=== PATIENT | male | born 1980 | race Caucasian/White ===

== ENCOUNTER 2016-10-04 10:18 | Emergency (ER) | payer OTHER ==
[~2016-10-04] VITALS: Ht 170.2 cm; Wt 98.2 kg
[~2016-10-04 10:18] MED LIST: AUGM875T PO; TYLCOD5S PO
[2016-10-04 10:27] VITALS: BP 131/70; PULSE 62; RESP 14; TEMP 99.2; O2SAT 96
[2016-10-04] MEDS ORDERED: MEDR4PAK PO ×2 (11:56→12:01)
[2016-10-04] MEDS ORDERED: NYST10007 TOPICAL (11:56)
--- NOTE | 2016-10-04 11:59 | PD ---
HPI Chief Complaint: Skin Problem Time Seen by Provider: 11:35 Travel History International Travel<30 days: No Contact w/Intl Traveler<30days: No History of Present Illness HPI 36-year-old male presents emergency department for evaluation of a rash 2 days. Patient reports a rash originated in his left axilla and then spread to his right axilla, abdomen and groin. He reports that the rash is nonpleuritic. He denies fever or chills. He reports taking Benadryl with minimal improvement. He denies any new soaps, detergents, lotions or body products. He denies fever, oral/tongue swelling, difficulty swallowing, shortness breath or wheezing. He denies any previous allergic reactions. Symptom severity is mild. PFSH Past Medical History Medical History: Denies Significant Hx Diminished Hearing: No Immunizations Current: Yes Social History Alcohol Use: Yes ([facility]) Tobacco Use: No (QUIT 1997) Substance Use: No Allergies-Medications (Allergen,Severity, Reaction): Coded Allergies: No Known Allergies (Unverified , 02/10/14) Reported Meds & Prescriptions Reported Meds & Active Scripts Active Tylenol / Codeine Elix Per 5 Ml (Acetaminophen/Codeine Phosphate) 120 Mg/12 Mg Elix 5-10 Ml PO Q6H Augmentin 875 mg Tab (Amoxicillin & Pot Clavulanate 875 mg Tab) 875 Mg Tab 875 Mg PO BID Review of Systems Except as stated in HPI: all other systems reviewed are Neg General / Constitutional: No: Fever Eyes: No: Visual changes HENT: No: Headaches Cardiovascular: No: Chest Pain or Discomfort Respiratory: No: Shortness of Breath Gastrointestinal: No: Abdominal Pain Genitourinary: No: Dysuria Physical Exam Narrative GENERAL: Well-nourished, well-developed patient. SKIN: Focused skin assessment warm/dry. Well demarcated and slightly raised erythematous rash to bilateral axilla, anterior abdomen, groin. HEAD: Normocephalic. EYES: No scleral icterus. No injection or drainage. NECK: Supple, trachea midline. No JVD or lymphadenopathy. CARDIOVASCULAR: Regular rate and rhythm without murmurs, gallops, or rubs. RESPIRATORY: Breath sounds equal bilaterally. No accessory muscle use. GASTROINTESTINAL: Abdomen soft, non-tender, nondistended. MUSCULOSKELETAL: No cyanosis, or edema. BACK: Nontender without obvious deformity. No CVA tenderness. Data Data Last Documented VS Vital Signs Date Time Temp Pulse Resp B/P Pulse Ox O2 Delivery O2 Flow Rate FiO2 10/04/16 10:27 99.2 62 14 131/70 96 Room Air MDM Medical Decision Making Medical Screen Exam Complete: Yes Emergency Medical Condition: Yes Medical Record Reviewed: No Differential Diagnosis Contact dermatitis, tinea corporis, plaque psoriasis Narrative Course 36-year-old male with chief complaint of rash 2 days. His physical exam is reassuring. He has a well demarcated slightly raised erythematous rash of bilateral axilla anterior abdomen and groin. The rash appears urticarial although its location is consistent with a fungal rash. Patient will be treated with steroids instructed to continue Benadryl and given nystatin powder. Patient was instructed to follow-up with his primary care doctor in 1- 2 days. He agrees to plan Diagnosis Primary Impression: Rash and nonspecific skin eruption Referrals: Primary Care Physician Additional Instructions: Take the medications as prescribed. Change to hypoallergenic laundry detergent as we discussed. Follow-up with her primary care doctor. Return to emergency department if you've new or worsening symptoms. Scripts Methylprednisolone Dosepak (Medrol Dosepak)4 Mg Dspk4 Mg PO DIRECTED #1 DSPK Ref 0 Per Pharmacist direction Prov:Jessica Diego 10/04/16 Nystatin Topical (Nystop Topical)100,000 Unit/Gm Powd1 Applic TOPICAL Q12HR # 60 GM Ref 0 Prov:Jessica Diego 10/04/16 Disposition: 01 DISCHARGE HOME Condition: Stable Jessica Diego Oct 04, 2016 11:59
[2016-10-04] MEDS ORDERED: LIDO2GEL11 TOPICAL (12:00)
[2016-10-04] MEDS ORDERED: NYST100084 TOPICAL (12:01)
== END 2016-10-04 12:24 | disposition home or self-care (01) ==
LOC: PHED 10:18
DX: R21 Rash and other nonspecific skin eruption (principal)
CPT/HCPCS: 99284